=== PATIENT | female | born 1970 | race Two or more races ===

== ENCOUNTER 2020-05-23 20:40 | Emergency (ER) | payer MEDICAID ==
[~2020-05-23] VITALS: Ht 157.5 cm; Wt 77.3 kg
[2020-05-23 20:59] VITALS: BP 134/84
--- NOTE | 2020-05-23 22:08 | NUR ---
took 10 mg percoset at 1400. With short term results.
== END 2020-05-23 23:05 ==
LOC: ER 20:40
DX: Z02.89 Encounter for other administrative examinations (principal); J45.909 Unspecified asthma, uncomplicated; M79.601 Pain in right arm; Z98.890 Other specified postprocedural states
CPT/HCPCS: 99283